=== PATIENT | female | born 1990 | race Caucasian/White ===

== ENCOUNTER 2022-09-20 10:17 | Emergency (ER) | payer OTHER, SELFPAY ==
--- NOTE | ~2022-09-20 | XR_ITS ---
Lumbosacral Spine: AP, oblique, and lateral views Clinical History: Pain Findings: The normal lordotic curve is maintained. The vertebral bodies and posterior elements are i ntact. The intervertebral disc spaces are preserved. The sacroiliac joints are normally outlined. I UD present. Impression: No significant abnormality. Reviewed, dictated and finalized at location . Impression: No significant abnormality.
[2022-09-20 10:21] VITALS: BP 109/80; PULSE 69; RESP 20; TEMP 36.7; O2SAT 100
[2022-09-20 13:35] LABS: Appearance Urine Clear (Clear); Bilirubin Urine Negative (Negative); Blood Urine Negative (Negative); Color Urine Yellow (Yellow); Glucose Urine UA Negative (Negative); Ketones Urine Negative (Negative); Leukocyte Esterase Ur Negative LEU/UL (Negative); Nitrate Urine Negative (Negative); Protein Urine Negative (Negative); Specific Grav Ur 1.022 (1.001-1.035); Urobilinogen Urine 0.2 mg/dL (<2.0); pH Urine 5.5 (5.0-9.0)
[2022-09-20 13:37] LABS: Add Urine Microscopic? NO
--- NOTE | 2022-09-20 13:43 | ED.BACK ---
HPI - Back Pain/Injury General Chief Complaint: Back Pain/Injury Stated Complaint: Back pain Time Seen by Provider: 09/20/22 12:03 Source: patient Mode of arrival: ambulatory Limitations: no limitations History of Present Illness HPI Narrative: 32-year-old otherwise healthy here with complaints of left-sided back pain for past few days. Patient states that soon after she got back from work she had intense pain in the left lower costal area. She denies lifting heavy weights or trauma. She denies any urinary problems. No history of fever or chills. MD elicited complaint: back pain Onset (ago): day(s) (2) Timing: constant Severity: moderate Quality: aching Location: lumbar spine Radiation: none Exacerbating factors: movement Associated symptoms: denies other symptoms Related Data Allergies Allergy/AdvReac Type Severity Reaction Status Date / Time ibuprofen Allergy Unknown SOB Verified 09/20/22 11:10 tramadol Allergy Unknown SOB Verified 09/20/22 11:10 Review of Systems Review of Systems: All systems reviewed & are unremarkable except as noted in HPI and below Constitutional: Constitutional: Reports no additional constitutional complaints Eyes: Eyes: Reports no additional eye complaints ENT: Reports system reviewed and no additional complaints, except as documented Cardiovascular: Cardiovascular: Reports no additional cardiovascular complaints Respiratory: Respiratory: Reports no additional respiratory complaints Gastrointestinal: Gastrointestinal: Reports no additional gastrointestinal complaints Musculoskeletal: Musculoskeletal: Reports as per HPI Integumentary/Breasts: Skin/Breast: Reports system reviewed and no additional complaints, except as docu Neurologic: Reports system reviewed and no additional complaints, except as documented Exam Narrative: GENERAL: Well-appearing, well-nourished, and in no acute distress. HEAD: Normocephalic, atraumatic. EYES: PERRLA and EOMI. NECK: Supple. CHEST: Clear to auscultation. No respiratory distress. HEART: Regular rate and rhythm. No murmur heard. Normal peripheral pulses. Back pian in the left upper lumar area , no rash . EXTREMITIES: Normal range of motion. No edema. SKIN: Warm, dry, no rash. NEURO: No focal deficits. Alert and oriented x3. PSYCH: Normal mood and affect. Course Vital Signs Vital signs: Vital Signs Temperature 36.7 C 09/20/22 10:21 Pulse Rate 69 09/20/22 10:21 Respiratory Rate 20 09/20/22 10:21 Blood Pressure 109/80 09/20/22 10:21 Pulse Oximetry 100 09/20/22 10:21 Oxygen Delivery Room Air 09/20/22 10:21 Temperature 36.7 C 09/20/22 10:21 Pulse Rate 69 09/20/22 10:21 Respiratory Rate 20 09/20/22 10:21 Blood Pressure 109/80 09/20/22 10:21 Pulse Oximetry 100 09/20/22 10:21 Oxygen Delivery Room Air 09/20/22 10:21 MDM - Back Pain/Injury MDM Narrative Medical decision making narrative: 32-year-old with pain in the left flank area we will do a UA and lumbar x-ray appears to be more musculoskeletal Lab Data Labs: Lab Results 09/20/22 Range/Units 13:28 Urine Color Yellow (Yellow) Urine Appearance Clear (Clear) Urine pH 5.5 (5.0-9.0) Ur Specific [place] 1.022 (1.001-1.035) Urine Protein Negative (Negative) mg/dL Urine Glucose (UA) Negative (Negative) mg/dL Urine Ketones Negative (Negative) mg/dL Ur Blood (Man) Negative (Negative) Urine Nitrate Negative (Negative) Urine Bilirubin Negative (Negative) Urine Urobilinogen 0.2 (<2.0) mg/dL Leukocyte Esterase Rfl Negative (Negative) CINDY/UL UCG Bedside Result Negative Reference Range: Negative Imaging Data Radiologist's impression: ITS Impressions Lumbar Spine X-Ray 09/20/22 13:08 Impression: No significant abnormality. Discharge Plan Discharge Clinical Impression: Strain of lumbar region P
== END 2022-09-20 14:00 | disposition home or self-care (01) ==
PROVIDERS: Emergency Provider Family Medicine; PCP Physician Assistant
DX: S39.012A Strain of muscle, fascia and tendon of lower back, initial encounter (principal); X58.XXXA Exposure to other specified factors, initial encounter
CPT/HCPCS: 72110; 81003; 81025; 99283